=== PATIENT | male | born 1975 | race Caucasian/White ===

== ENCOUNTER 2017-06-25 20:28 | Emergency (ER) | payer BC ==
[~2017-06-25] VITALS: Ht 170.2 cm; Wt 67.1 kg
[2017-06-25 20:44] VITALS: BP 112/60
[2017-06-25] MEDS ORDERED: ONDANSETRON 4 MG TAB.RAPDIS PO ONE (21:30)
[2017-06-25] MEDS ORDERED: ACETAMINOPHEN 325 MG TABLET PO ONE (21:30)
[2017-06-25] MEDS ORDERED: ACETAMINOPHEN ES 500 MG TABLET ONE (21:31)
[2017-06-25] MEDS ORDERED: ONDANSETRON 4 MG TAB.RAPDIS ONE (21:32)
== END 2017-06-25 22:16 | disposition home or self-care (01) ==
LOC: ER 20:30
DX: A08.4 Viral intestinal infection, unspecified (principal); K21.9 Gastro-esophageal reflux disease without esophagitis
CPT/HCPCS: 87804 ×2; 99284; A4606; Q0162; Z7610; 87400

== ENCOUNTER 2020-11-26 12:23 | Emergency (ER) | payer OTHER, BC ==
[~2020-11-26] VITALS: Ht 170.2 cm; Wt 69.4 kg
[2020-11-26 12:33] VITALS: BP 148/78
--- NOTE | 2020-11-26 14:00 | NUR ---
Patient eloped from facility. ER MD notified.
[2020-11-27] MEDS ORDERED: IOHEXOL-350 100 ML VIAL IV ONE (04:46)
[2020-11-27] MEDS ORDERED: IV NS 0.9% 250 ML IV ONE (04:47)
== END 2020-11-26 14:00 | disposition left against medical advice (07) ==
LOC: ER 12:27
DX: Z53.29 Procedure and treatment not carried out because of patient's decision for other reasons (principal); H61.22 Impacted cerumen, left ear; H92.02 Otalgia, left ear; K21.9 Gastro-esophageal reflux disease without esophagitis
CPT/HCPCS: J7050; Q9967